=== PATIENT | female | born 1935 | race Caucasian/White ===

== ENCOUNTER 2017-10-25 03:28 | Inpatient (IN) | payer MEDICARE ==
[~2017-10-25] VITALS: Ht 167.6 cm; Wt 65.0 kg
[2017-10-25 03:31] VITALS: BP 159/81; PULSE 97; RESP 20; TEMP 97.7; O2SAT 97
[2017-10-25] MEDS ORDERED: METO25TA3 PO (03:48)
[2017-10-25] MEDS ORDERED: AMLO2.5T PO (03:48)
[2017-10-25] MEDS ORDERED: HYDR500C PO (03:48)
[2017-10-25] MEDS ORDERED: SODIUM CHLOR 0.9% 1000 ML INJ 1,000 ML IV SCH (04:01)
--- NOTE | 2017-10-25 04:01 | PD ---
HPI Chief Complaint: Abdominal Pain Time Seen by Provider: 04:00 Travel History International Travel<30 days: No Contact w/Intl Traveler<30days: No Traveled to known affect area: No History of Present Illness HPI Patient is an 82-year-old female very fit and exercise conscious on vacation from [place] been here for the last 2 weeks visiting her daughter kaylie she woke up in the middle the night severe pressure in her abdomen asked her daughter for any laxative but they had not in the house. Pain got so significantly worse they had to come to the emergency room. Patient has a history of having thrombocytosis for which she takes hydroxyurea and she takes a meloxicam for muscle relaxant and she takes a pill for pressure was only medication she takes and she has no other significant past medical history daughter says she is a fitness buff she looks thin and younger than her stated age. In the ER she has significant distended bloating belly and has severe tenderness to my percussion and palpation of her abdomen, She has not seen another MD for this illness PFSH Past Medical History Cancer: Yes (skin) Hypertension: Yes Immunizations Current: Yes Tetanus Vaccination: Unknown Influenza Vaccination: Yes Social History Alcohol Use: No Tobacco Use: No Substance Use: No Allergies-Medications (Allergen,Severity, Reaction): Coded Allergies: No Known Allergies (Unverified , 10/25/17) Reported Meds & Prescriptions Reported Meds & Active Scripts Active Reported Metoprolol Tartrate 25 Mg Tab 25 Mg PO DAILY Amlodipine (Amlodipine Besylate) 2.5 Mg Tab 2.5 Mg PO DAILY Hydrea (Hydroxyurea) 500 Mg Cap 500 Mg PO DAILY Review of Systems Except as stated in HPI: all other systems reviewed are Neg Gastrointestinal: Positive: Abdominal Pain, Constipation Physical Exam Narrative GENERAL: Patient is awake alert appears uncomfortable SKIN: Warm and dry. HEAD: Atraumatic. Normocephalic. EYES: Pupils equal and round. No scleral icterus. No injection or drainage. ENT: No nasal bleeding or discharge. Mucous membranes pink and moist. NECK: Trachea midline. No JVD. CARDIOVASCULAR: Regular rate and rhythm. RESPIRATORY: No accessory muscle use. Clear to auscultation. Breath sounds equal bilaterally. GASTROINTESTINAL: Abdomen is very tender to percussion in all quadrants also she is positive for rebound tenderness when I let go. concerning for ischemic colitis or possible Perforated viscous soft, moderately distended . MUSCULOSKELETAL: Extremities without clubbing, cyanosis, or edema. No obvious deformities. NEUROLOGICAL: Awake and alert. No obvious cranial nerve deficits. Motor grossly within normal limits. Five out of 5 muscle strength in the arms and legs. Normal speech. PSYCHIATRIC: Appropriate mood and affect; insight and judgment normal. Data Data Last Documented VS Orders Orders Complete Blood Count With Diff (10/25/17 04:01) Comprehensive Metabolic Panel (10/25/17 04:01) Lipase (10/25/17 04:01) Lactic Acid (10/25/17 04:01) Urinalysis - C+S If Indicated (10/25/17 04:01) Abdomen, Flat & Upright (10/25/17 ) Ct Abd/Pel W Iv Contrast(Rout) (10/25/17 04:01) Iv Access Insert/Monitor (10/25/17 04:01) Ecg Monitoring (10/25/17 04:01) Oximetry (10/25/17 04:01) Sodium Chlor 0.9% 1000 Ml Inj (Ns 1000 M (10/25/17 04:01) Sodium Chloride 0.9% Flush (Ns Flush) (10/25/17 04:15) Prothrombin Time / Inr (Pt) (10/25/17 04:03) Oral Contrast - Adult (10/25/17 04:05) Troponin I (10/25/17 04:10) Electrocardiogram (10/25/17 ) Morphine Inj (Morphine Inj) (10/25/17 04:30) Diatrizoate Liq ( Gastroview Liq) (10/25/17 04:56) Piperacil-Tazo 3.375 Gm Premix (Zosyn 3. (10/25/17 06:15) Sodium Chlor 0.9% 1000 Ml Inj (Ns 1000 M (10/25/17 06:15) NPO (10/25/17 06:04) Admit Order (Ed Use Only) (10/25/17 06:05) Labs Laboratory Tests Test 10/25/17 04:00 White Blood Count 5.4 TH/MM3 Red Blood Count 3.69 MIL/MM3 Hemoglobin 13.6 GM/DL Hematocrit 39.6 % Mean Corpuscular Volume 107.2 FL Mean Corpuscular Hemoglobin 36.8 PG Mean Corpuscular Hemoglobin Concent 34.3 % Red Cell Distribution Width 13.1 % Platelet Count 425 TH/MM3 Mean Platelet Volume 7.8 FL Neutrophils (%) (Auto) 48.1 % Lymphocytes (%) (Auto) 39.1 % Monocytes (%) (Auto) 8.4 % Eosinophils (%) (Auto) 3.9 % Basophils (%) (Auto) 0.5 % Neutrophils # (Auto) 2.6 TH/MM3 Lymphocytes # (Auto) 2.1 TH/MM3 Monocytes # (Auto) 0.5 TH/MM3 Eosinophils # (Auto) 0.2 TH/MM3 Basophils # (Auto) 0.0 TH/MM3 CBC Comment DIFF FINAL Differential Comment Prothrombin Time 9.4 SEC Prothromb Time International Ratio 0.9 RATIO Blood Urea Nitrogen 31 MG/DL Creatinine 1.19 MG/DL Random Glucose 100 MG/DL Total Protein 7.4 GM/DL Albumin 3.7 GM/DL Calcium Level 9.3 MG/DL Alkaline Phosphatase 54 U/L Aspartate Amino Transf (AST/SGOT) 19 U/L Alanine Aminotransferase (ALT/SGPT) 21 U/L Total Bilirubin 0.3 MG/DL Sodium Level 139 MEQ/L Potassium Level 4.0 MEQ/L Chloride Level 103 MEQ/L Carbon Dioxide Level 30.5 MEQ/L Anion Gap 6 MEQ/L Estimat Glomerular Filtration Rate 43 ML/MIN Lactic Acid Level 1.1 mmol/L Troponin I 0.02 NG/ML Lipase 293 U/L [facility] Medical Decision Making Medical Screen Exam Complete: Yes Emergency Medical Condition: Yes Medical Record Reviewed: Yes Differential Diagnosis Fecal impaction ileus versus small bowel obstruction versus ischemic colitis versus pertinent viscous , pneumatosis intestinalis other panccreatitis Narrative Course X-ray returns with free air underneath the diaphragm I immediately paged the surgeon to let him know that there is most likely a perforated viscus. Patient was the CAT scan I speak to Dr. Hilliard Surgeon, he agrees to take her to her service and will take her to the OR most likely .. CAT scan in progress I order NPo and Zosyn 3.375 g is given Critical Care Narrative 30 minutes critical care time to diagnosis treat medically and get to appropriate definitive surgical care to avoid peritonitis --> sepsis that could lead to cardiac arrest Diagnosis Primary Impression: Perforated bowel Additional Impression: Duodenal ulcer Admitting Information Admitting Physician Requests: Admit Scripts Hydrocodone/Acetaminophen (Hydrocodone-Acetamin 5-325 mg) 5 Mg-325 Mg Tablet 1 TAB PO Q4H Y for pain, #20 TAB Prov: Matilde Araujo 10/31/17 Clarithromycin (Clarithromycin) 500 Mg Tab 500 MG PO Q12HR for infection for 14 Days, TAB Prov: Matilde Araujo 10/31/17 Pantoprazole (Pantoprazole) 40 Mg Tab 40 MG PO DAILY for Dyspepsia for 30 Days, #30 TAB 2 Refills Prov: Matilde Araujo 10/31/17 Davian Culver MD Oct 25, 2017 04:01
[2017-10-25] MEDS ORDERED: SODIUM CHLORIDE 0.9% FLUSH 10 ML FLUSH IV FLUSH PRN ×2 (04:15→12:00)
[2017-10-25 04:28] LABS: AUTOMATED NEUTROPHIL # 2.6 TH/MM3 (1.8-7.7); BASOPHIL % 0.5 % (0.0-2.0); EOSINOPHIL # 0.2 TH/MM3 (0-0.4); EOSINOPHIL % 3.9 % (0.0-4.0); HEMATOCRIT 39.6 % (35.0-46.0); HEMOGLOBIN 13.6 GM/DL (11.6-15.3); LYMPH % 39.1 % (9.0-44.0); LYMPHOCYTE # 2.1 TH/MM3 (1.0-4.8); MEAN CELL VOLUME 107.2 FL (80.0-100.0); MEAN CORPUSCULAR HEMOGLOBIN 36.8 PG (27.0-34.0); MEAN CORPUSCULAR HGB CONC 34.3 % (32.0-36.0); MEAN PLATELET VOLUME 7.8 FL (7.0-11.0); MONO % 8.4 % (0.0-8.0); MONOCYTE # 0.5 TH/MM3 (0-0.9); NEUT % 48.1 % (16.0-70.0); PLATELET COUNT 425 TH/MM3 (150-450); RED BLOOD COUNT 3.69 MIL/MM3 (4.00-5.30); RED CELL DISTRIBUTION WIDTH 13.1 % (11.6-17.2); WHITE BLOOD COUNT 5.4 TH/MM3 (4.0-11.0)
[2017-10-25] MEDS ORDERED: MORPHINE SULFATE 2 MG/ML INJ IV PUSH ONE (04:30)
[2017-10-25 04:46] LABS: ALBUMIN 3.7 GM/DL (3.4-5.0); AST (GOT) 19 U/L (15-37); BICARBONATE 30.5 MEQ/L (21.0-32.0); BLOOD UREA NITROGEN 31 MG/DL (7-18); CALCIUM 9.3 MG/DL (8.5-10.1); CHLORIDE 103 MEQ/L (98-107); CREATININE 1.19 MG/DL (0.50-1.00); GLOMERULAR FILTRATION RATE 43 ML/MIN (>89); GLUCOSE,RANDOM 100 MG/DL (74-106); LIPASE 293 U/L (73-393); SODIUM (NA) 139 MEQ/L (136-145)
[2017-10-25 04:47] LABS: ALT (GPT) 21 U/L (10-53)
[2017-10-25 04:49] LABS: ALKALINE PHOSPHATASE 54 U/L (45-117); TOTAL BILIRUBIN ADULT 0.3 MG/DL (0.2-1.0); TOTAL PROTEIN 7.4 GM/DL (6.4-8.2)
[2017-10-25] MEDS ORDERED: DIATRIZOATE MEGLUM/DIATRIZOATE SOD 9 ML CUP ONE (04:56)
[2017-10-25 05:00] VITALS: BP 152/78; PULSE 86; RESP 20; O2SAT 97
[2017-10-25 05:17] LABS: INTERNATIONAL NORMALIZED RATIO 0.9 RATIO; PROTHROMBIN TIME - PATIENT 9.4 SEC (9.8-11.6)
--- NOTE | 2017-10-25 05:25 | RADRPT ---
EXAM DATE/TIME: 10/25/2017 04:42 [facility] COMPARISON: No previous studies available for comparison. INDICATIONS : Upper abdominal pain beginning tonight. MEDICAL HISTORY : Hypertension. Skin Cancer SURGICAL HISTORY : None. ENCOUNTER: Initial ACUITY: 1 day PAIN SCORE: 9/10 LOCATION: Bilateral Abdomen FINDINGS: Supine and upright views of the abdomen were performed. The abdominal bowel gas pattern is nonspecif ic. There is a moderate amount of stool throughout the entire colon. However, on the upright study th ere is free air under the right hemidiaphragm.. The lung bases are grossly clear. There are degenerat homer changes involving the lumbar spine with curvature of the lumbar spine to the right. CONCLUSION: 1. Free air underneath the right hemidiaphragm. This suggests a perforated viscus. Patient is schedul ed for CT scan of the abdomen and pelvis. Lawson Jacobs MD on October 25, 2017 at 5:21 Board Certified Radiologist. This report was verified electronically.
[2017-10-25] MEDS ORDERED: IOHEXOL 350 MG/ML 10 ML VIAL (for RAD DIAG) IVCONTRAST ONE (06:00)
[2017-10-25] MEDS ORDERED: PIPERACIL-TAZO 3.375 GM PREMIX 50 ML IV ONE (06:15)
[2017-10-25] MEDS ORDERED: SODIUM CHLOR 0.9% 1000 ML INJ 1,000 ML IV ONE (06:15)
--- NOTE | 2017-10-25 06:25 | RADRPT ---
EXAM DATE/TIME: 10/25/2017 06:08 [facility] COMPARISON: ABDOMEN FLAT & UPRIGHT, October 25, 2017, 4:42. INDICATIONS : Abdominal pain and distention. IV CONTRAST: 85 cc Omnipaque 350 (iohexol) IV ORAL CONTRAST: Prescribed oral contrast ingested. RADIATION DOSE: 6.38 CTDIvol (mGy) MEDICAL HISTORY : Hypertension. SURGICAL HISTORY : None. ENCOUNTER: Initial ACUITY: 2 days PAIN SCALE: 10/10 LOCATION: Abdomen. TECHNIQUE: Volumetric scanning of the abdomen and pelvis was performed. Using automated exposure control and ad justment of the mA and/or kV according to patient size, radiation dose was kept as low as reasonably achievable to obtain optimal diagnostic quality images. DICOM format image data is available electro nically for review and comparison. FINDINGS: LOWER LUNGS: The visualized lower lungs are clear. There is free air under the right hemidiaphragm. LIVER: Homogeneous density without lesion. There is no dilation of the biliary tree. No calcified gallston es. SPLEEN: Normal size without lesion. PANCREAS: Within normal limits. KIDNEYS: Normal in size and shape. There is no mass, stone or hydronephrosis. ADRENAL GLANDS: Within normal limits. VASCULAR: There is no aortic aneurysm. BOWEL/MESENTERY: There is free air in the upper abdomen. There is thickening involving the distal wall of the stomach and duodenal bulb. Most of the free air appears to be in this location. This suggests a possible melvin veda or duodenal ulcer perforation. Small bowel is within normal limits. Oral contrast was given. No d efinite extravasation of oral contrast is seen. There is a moderate amount of stool throughout the co edson. Appendix is unremarkable. There is a small amount of free fluid deep in the pelvis. There is no free air deep in the pelvis. ABDOMINAL WALL: Within normal limits. RETROPERITONEUM: There is no lymphadenopathy. BLADDER: Urinary bladder is decompressed. REPRODUCTIVE: Within normal limits. INGUINAL: There is no lymphadenopathy or hernia. MUSCULOSKELETAL: There are degenerative changes involving the lumbar spine. There is curvature lumbar spine to the rig ht. CONCLUSION: 1. There is free air in the upper abdomen characteristics of a perforated viscus. There is abnormal t hickening involving the stomach and duodenal bulb. Most of the free air appears to be in this locatio n suggestive of a perforated gastric or duodenal ulcer. 2. Small amount of free fluid deep in the pelvis. Lawson Jacobs MD on October 25, 2017 at 6:16 Board Certified Radiologist. This report was verified electronically.
[2017-10-25 06:30] VITALS: BP 146/68; PULSE 96; RESP 20; O2SAT 97
[2017-10-25 07:12] VITALS: BP 138/63; PULSE 87; RESP 20; TEMP 98.1; O2SAT 96
[2017-10-25] MEDS ORDERED: BUPIVACAINE/EPINEPHRINE 0.25% 50 ML VIAL ONE (08:32)
[2017-10-25] MEDS ORDERED: BUPIVACAINE/EPINEPHRINE 0.25% PF 10 ML VIAL ONE (08:33)
[2017-10-25] MEDS ORDERED: FLUCONAZOLE 400 MG PREMIX BAG 200 ML IV ONE (09:00)
--- NOTE | 2017-10-25 09:10 | MH ---
cc: MORIS PARSON DATE OF ADMISSION 10/25/2017 CHIEF COMPLAINT Intra-abdominal free air. HISTORY OF PRESENT ILLNESS The patient is an 82-year-old female visiting the [facility] from [place]. She developed a sudden onset of severe epigastric abdominal pain that felt like indigestion at about 2:45 a.m. The patient presented to [facility] and had evaluation including x-ray which did show a small amount of free air under the diaphragm. A CT scan was performed and it again showed a small amount of free air in the upper abdomen as well as some thickening of the stomach concerning for possible perforation. The patient was stable hemodynamically. She had significant tenderness on exam. General surgery was consulted. The patient currently has no nausea, vomiting, diarrhea, constipation, fevers, chills or night sweats. She has never had this pain prior. Pain has been constant in epigastric abdomen without radiation. She feels better since receiving pain medicine. REVIEW OF SYSTEMS A 12-point review of systems is performed with the patient and is negative except for pertinent positives mentioned above in the history of present illness. PAST MEDICAL HISTORY Thrombocytosis. PAST SURGICAL HISTORY Orthopedic surgery. ALLERGIES No known drug allergies. MEDICATIONS Hydroxyurea. SOCIAL HISTORY The patient occasionally uses alcohol, small amounts of wine socially. She denies cigarette or tobacco use. Denies illicit drug use. She lives in [place], down here with her daughter vacationing. FAMILY HISTORY Noncontributory. PHYSICAL EXAMINATION VITAL SIGNS: Temperature 98.1 degrees, heart rate 87, blood pressure 138/63. GENERAL: The patient is a well-developed, well-nourished female in no acute distress. HEENT: Head is normocephalic, atraumatic. Pupils are round and reactive to light. Sclera anicteric. Oral cavity is clear. Airway is patent. NECK: Supple. No JVD. LUNGS: Breath sounds present bilaterally. Non-labored breathing pattern. HEART: Regular rate and rhythm. ABDOMEN: Soft. Mildly distended. Tender to palpation throughout without obvious peritonitis. Tenderness more in the epigastric area. Hypoactive bowel sounds. BACK: No CVA tenderness. EXTREMITIES: No clubbing, cyanosis or edema. NEUROLOGIC: The patient is alert and oriented x3. Nonfocal peripheral exam. Cranial nerves II through XII grossly intact. Mood, judgment and insight are within normal limits. LABORATORY VALUES White blood cell count 5.4, hemoglobin 13.6. INR is 0.9. ASSESSMENT AND PLAN The patient is an 82-year-old female with a likely perforated gastric or duodenal ulcer based on the CT scan. The patient is hemodynamically stable without peritonitis. There is also of note a significant amount of free fluid in the upper abdomen. The patient has no history of NSAID abuse or known H. pylori infection. Due to the free air in the abdomen and also free fluid, I do feel the patient is not a good candidate for nonoperative management of free air. I feel the patient would most benefit from early operation. I do recommend diagnostic laparoscopy, possible exploratory laparotomy for identification of the problem including a high likelihood of a perforated gastric or duodenal ulcer. I discussed with the patient and her daughter the risks, benefits, alternatives and expected outcomes. All their questions were answered to their satisfaction. Will keep the patient n.p.o., give antibiotics, IV fluids and will schedule the patient urgently for the operating room based on operating room availability. Moris Parson MD AWG/SHANTANU /8:09 AM /8:46 AM
[2017-10-25 09:12] LABS: BILIRUBIN, URINE NEG (NEG); BLOOD, URINE NEG (NEG); GLUCOSE,URINE NEG (NEG); KETONE, URINE NEG (NEG); NITRITE,URINE NEG (NEG); PH, URINE 6.5 (5.0-8.5); SQUAMOUS EPITHELIAL CELL URINE <1 /hpf (0-5); URINE COLOR LIGHT-YELLOW (YELLW/STRAW); URINE LEUKOCYTE ESTERASE NEG (NEG)
[2017-10-25] MEDS ORDERED: GENTAMICIN SULFATE 80 MG/2 ML VIAL ONE (09:32)
[2017-10-25] MEDS ORDERED: BUPIVACAINE LIPOSOME PF 1.3% 20 ML VIAL ONE (10:56)
[2017-10-25] MEDS ORDERED: DO NOT ADM ANY ANTICOAGULANT DRUGS PRN (11:19)
[2017-10-25] MEDS ORDERED: NALOXONE HCL 0.4 MG/ML AMP IV PUSH PRN ×2 (11:30→12:15)
[2017-10-25] MEDS ORDERED: *morphine SULFATE 4 MG/ML PERIprocedure ONLY ONE ×2 (11:44→11:47)
[2017-10-25] MEDS ORDERED: ONDANSETRON HCL 4 MG/2 ML VIAL IV ONE (12:00)
[2017-10-25] MEDS ORDERED: ROCURONIUM INJ 50 MG/5 ML SYRINGE IV PUSH ONE (12:00)
[2017-10-25] MEDS ORDERED: LIDOCAINE HCL 1% PF 5 ML SYRINGE OTHER ONE (12:00)
[2017-10-25] MEDS ORDERED: PROPOFOL 200 MG/20 ML AMP IV ONE (12:00)
[2017-10-25] MEDS ORDERED: GLYCOPYRROLATE 1 MG/5 ML SYRINGE IV PUSH ONE (12:00)
[2017-10-25] MEDS: PANTOPRAZOLE SODIUM 40 MG VIAL IV PUSH SCH ×2 (12:00→20:44)
[2017-10-25] MEDS ORDERED: NEOSTIGMINE 5 MG/5 ML SYRINGE IV PUSH ONE (12:00)
[2017-10-25] MEDS: SODIUM CHLORIDE 0.9% FLUSH 10 ML FLUSH IV FLUSH SCH ×2 (12:00→20:43)
[2017-10-25] MEDS ORDERED: LACTATED RINGER'S 1000 ML INJ 3,000 ML IV ONE (12:00)
[2017-10-25] MEDS ORDERED: PHENYLEPH/NS 1000 MCG/10 ML SYR IV ONE (12:00)
[2017-10-25] MEDS ORDERED: DEXAMETHASONE SOD PHOS 4 MG/ML VIAL IV ONE (12:00)
[2017-10-25] MEDS: D5-NS + KCL 20 MEQ INJ 1,000 ML IV SCH ×2 (12:15→20:44)
[2017-10-25] MEDS ORDERED: ONDANSETRON HCL 4 MG/2 ML VIAL IV PUSH PRN (12:15)
[2017-10-25] MEDS ORDERED: BENZOCAINE 20% ORAL SPR 60 ML CAN MT PRN (12:15)
[2017-10-25] MEDS ORDERED: diphenhydrAMINE HCL 50 MG/ML VIAL IV PUSH PRN (12:15)
[2017-10-25] MEDS: ACETAMINOPHEN 1000 MG/100 ML 100 ML IV SCH ×2 (12:30→17:40)
[2017-10-25] MEDS ORDERED: Post-op Orders (for Pharmacy) XX ONE (13:00)
[2017-10-25] MEDS: PIPERACIL-TAZO 3.375 GM PREMIX 50 ML IV SCH ×2 (13:59→18:52)
--- NOTE | 2017-10-25 14:20 | EKG ---
Date Performed: 10/25/2017 Time Performed: 04:32:52 PTAGE: 82 years EKG: Sinus rhythm MINIMAL ST DEPRESSION BORDERLINE ECG NO PREVIOUS TRACING DOCTOR: Pradeep Sandy Interpretating Date/Time 10/25/2017 14:19:02
[2017-10-25] MEDS: PCA - TOTAL MG MORPHINE DELIVERED PER SHIFT SCH ×2 (15:30→22:13)
[2017-10-25 16:00] VITALS: BP 101/51; PULSE 68; RESP 17; TEMP 96.8; O2SAT 98
[2017-10-25 20:00] VITALS: BP 103/52; PULSE 79; RESP 19; TEMP 97.6; O2SAT 94
[2017-10-26] VITALS (7 sets, daily range): BP systolic 103–147; BP diastolic 53–70; PULSE 77–97; RESP 17–20; TEMP 95.9–97.6; O2SAT 91–100
[2017-10-26] MEDS: PIPERACILLIN/TAZ 3.375 GM VIAL 3.375 GM in SODIUM CHLORIDE 0.9% INJ 100 ML IV SCH ×4 (00:48→17:53)
[2017-10-26] MEDS: ACETAMINOPHEN 1000 MG/100 ML 100 ML IV SCH ×5 (00:49→23:39)
[2017-10-26] MEDS: PCA - TOTAL MG MORPHINE DELIVERED PER SHIFT SCH ×3 (05:19→20:23)
[2017-10-26 06:57] LABS: AUTOMATED NEUTROPHIL # 10.1 TH/MM3 (1.8-7.7); HEMATOCRIT 28.4 % (35.0-46.0); HEMOGLOBIN 9.9 GM/DL (11.6-15.3); LYMPH % 5.9 % (9.0-44.0); LYMPHOCYTE # 0.7 TH/MM3 (1.0-4.8); MEAN CELL VOLUME 108.8 FL (80.0-100.0); MEAN CORPUSCULAR HEMOGLOBIN 37.9 PG (27.0-34.0); MEAN CORPUSCULAR HGB CONC 34.8 % (32.0-36.0); MEAN PLATELET VOLUME 8.4 FL (7.0-11.0); MONO % 3.9 % (0.0-8.0); MONOCYTE # 0.4 TH/MM3 (0-0.9); NEUT % 90.2 % (16.0-70.0); PLATELET COUNT 319 TH/MM3 (150-450); RED BLOOD COUNT 2.61 MIL/MM3 (4.00-5.30); RED CELL DISTRIBUTION WIDTH 13.3 % (11.6-17.2); WHITE BLOOD COUNT 11.2 TH/MM3 (4.0-11.0)
[2017-10-26 07:40] LABS: BICARBONATE 25.9 MEQ/L (21.0-32.0); CALCIUM 6.9 MG/DL (8.5-10.1); CREATININE 1.12 MG/DL (0.50-1.00)
[2017-10-26] MEDS: PANTOPRAZOLE SODIUM 40 MG VIAL IV PUSH SCH ×2 (08:34→20:23)
[2017-10-26] MEDS: FLUCONAZOLE 200 MG PREMIX BAG 100 ML IV SCH (08:34)
[2017-10-26] MEDS: SODIUM CHLORIDE 0.9% FLUSH 10 ML FLUSH IV FLUSH SCH ×2 (08:35→20:22)
[2017-10-26] MEDS: ENOXAPARIN SODIUM 40 MG/0.4 ML SYRINGE SQ SCH (08:35)
[2017-10-26] MEDS: D5-NS + KCL 20 MEQ INJ 1,000 ML IV SCH ×2 (12:18→20:22)
--- NOTE | 2017-10-26 12:37 | MP ---
cc: MORIS PARSON DATE OF OPERATION 10/25/2017 PREOPERATIVE DIAGNOSIS Free air. POSTOPERATIVE DIAGNOSIS Perforated first portion anterior duodenal ulcer. PROCEDURE 1. Diagnostic laparoscopy with laparoscopic repair of duodenal ulcer converted to open exploratory laparotomy and modified Jung's patch repair of perforated duodenal ulcer. 2. Duodenal ulcer biopsy, intraoperative consultation, frozen section. ATTENDING SURGEON MD Favian ASSISTANCE Staff ANESTHESIA General and local anesthetic with Exparel. ESTIMATED BLOOD LOSS 25 cc COMPLICATIONS None. FINDINGS An anterior 5-mm acutely perforated associated with a large, thick circumferential ulcer, first portion duodenal ulcer. Laparoscopic repair unfortunately showed continued leak due to poor approximation due to very thickened, inflamed tissue surrounding the perforation requiring conversion to open. INDICATIONS FOR PROCEDURE The patient is an 82-year-old [place] who developed sudden onset of epigastric pain early this morning. She presented to the emergency department, was found to have free air on CT scan and thickening of the gastric antrum concerning for possible perforated duodenal ulcer. After discussion with the patient about the diagnosis as well as the risks, benefits and alternatives of treatment, the patient agreed to undergo repair for ulcer and exploratory surgery. PROCEDURE The patient was taken to the operating room, placed in a supine position, placed under general endotracheal anesthesia. The patient's abdomen was prepped and draped in a sterile fashion. Time-out was performed. The abdomen was entered through Nevaeh type technique above the umbilicus with a curvilinear incision. We directly opened the fascia at the midline and placed a 10-mm balloon trocar into the abdomen under direct visualization. We insufflated the abdomen, surveyed the abdomen with a 5-mm camera. There was no evidence of any complication from our entry. We did note a large amount of bilious, purulent type material in the right upper quadrant and around the stomach and duodenum. We did place three additional ports; these were 5-mm ports, one in the sub-xyphoid position, one in the right upper quadrant, one in the left upper quadrant, all under direct visualization with the laparoscope. With these ports we were able to peel down some omentum and clearly identified a 5-mm anterior perforation at the first portion of the duodenum just past the pylorus. We did send some cultures from this area. At this point in time this appeared to be amendable to a laparoscopic closure with a laparoscopic modified Jung's patch. We were able to use the needle drivers and [place] dissector to place four interrupted 3-0 Vicryl sutures. Although this appeared we had completely closed the ulcer, we did leak test this by passing fluid from the stomach into the duodenum where this was a very obvious continued leak at this area. I felt that this was a poor result from a laparoscopic repair and would require an open repair in the patient's best interest. We then converted to an open midline incision from below the xiphoid to the umbilicus. We used Bovie electrocautery to dissect the subcutaneous tissue and opened the midline fascia. We placed an Lorenzo extra-large wound protector in place. We then were able to take down our previous Vicryl stitches. We biopsied the ulcer in multiple areas and sent this for permanent as well as frozen section which returned benign. We then closed the ulcer in a Heineke-Mekawitz type closure of the duodenum with several interrupted 3-0 silk sutures. Our repair was intact and technically viable; no evidence of leak. We then placed omentum over the repair and tacked this in place with three interrupted Lembert type silk sutures. At this point in time we then irrigated out the abdomen with approximately 6 liters of sterile saline until all succinate was clear and there was actually minimal contamination and minimal peritonitis. The patient had presented promptly after her perforation. NG tube was in good position and we also placed a 19-Gambian round Pawan drain through one of the port incisions into the right upper quadrant and near our repair. This was sutured in place with nylon suture. We then turned our attention towards closure. We ensured all bowel was in anatomic position and placed some omentum over the midline. We closed the midline fascia with single #1 looped PDS suture. We closed the skin with janelle and a SOO dressing was applied. The drain was placed to bulb suction. The patient was discontinued from anesthesia, taken to PACU in stable condition. The patient tolerated the procedure well. No apparent complications. All counts were correct and I was present and scrubbed for the entire procedure. MD GOLDIE GermainG/MILLY 11:37 AM /11:59 AM MISAEL
--- NOTE | 2017-10-26 15:53 | HHI.PR ---
Subjective Subjective Notes Pain improved today Objective Vitals/I&O Vital Signs Date Time Temp Pulse Resp B/P (MAP) Pulse Ox O2 Delivery O2 Flow Rate FiO2 10/26/17 12:24 17 10/26/17 12:00 97.4 77 111/58 (75) 100 10/25/17 14:00 Nasal Cannula 3 Labs Laboratory Tests Test 10/26/17 04:03 10/26/17 04:09 Blood Urea Nitrogen 23 Creatinine 1.12 Random Glucose 129 Total Protein 5.0 Calcium Level 6.9 Sodium Level 143 Potassium Level 4.5 Chloride Level 112 Carbon Dioxide Level 25.9 Anion Gap 5 Estimat Glomerular Filtration Rate 47 Protein Corrected Calcium 8.0 White Blood Count 11.2 Red Blood Count 2.61 Hemoglobin 9.9 Hematocrit 28.4 Mean Corpuscular Volume 108.8 Mean Corpuscular Hemoglobin 37.9 Mean Corpuscular Hemoglobin Concent 34.8 Red Cell Distribution Width 13.3 Platelet Count 319 Mean Platelet Volume 8.4 Neutrophils (%) (Auto) 90.2 Lymphocytes (%) (Auto) 5.9 Monocytes (%) (Auto) 3.9 Eosinophils (%) (Auto) 0.0 Basophils (%) (Auto) 0.0 Neutrophils # (Auto) 10.1 Lymphocytes # (Auto) 0.7 Monocytes # (Auto) 0.4 Eosinophils # (Auto) 0.0 Basophils # (Auto) 0.0 CBC Comment DIFF FINAL Differential Comment Date/Time Source Procedure Growth Status 10/25/17 10:20 Fluid Other Gram Stain - Final Resulted 10/25/17 10:20 Fluid Other Body Fluid Culture - Preliminary Resulted Lungs: Clear Abdomen: Post-op tenderness Narrative Exam SOO dressing dry and intact Drain output serosanguinous; bulb 3/4 full A/P Assessment and Plan POD #1 Jung Patch for perforated duodenal ulcer Continue NG D/C ospina Start anticoagulation Mobilize pt. Bryan Barrios MD Oct 26, 2017 15:53
[2017-10-27] VITALS (8 sets, daily range): BP systolic 137–182; BP diastolic 67–96; PULSE 83–110; RESP 17–21; TEMP 96.5–97.3; O2SAT 92–95
[2017-10-27] MEDS: PIPERACILLIN/TAZ 3.375 GM VIAL 3.375 GM in SODIUM CHLORIDE 0.9% INJ 100 ML IV SCH ×4 (01:49→18:16)
[2017-10-27] MEDS: D5-NS + KCL 20 MEQ INJ 1,000 ML IV SCH ×3 (02:39→20:15)
[2017-10-27] MEDS: MORPHINE SULFATE 30 MG/30 ML PCA IV SCH (02:40)
[2017-10-27] MEDS: ACETAMINOPHEN 1000 MG/100 ML 100 ML IV SCH (03:55)
[2017-10-27] MEDS: PCA - TOTAL MG MORPHINE DELIVERED PER SHIFT SCH ×3 (03:59→20:16)
[2017-10-27] MEDS: FLUCONAZOLE 200 MG PREMIX BAG 100 ML IV SCH (08:01)
[2017-10-27] MEDS: ENOXAPARIN SODIUM 40 MG/0.4 ML SYRINGE SQ SCH (08:01)
[2017-10-27] MEDS: PANTOPRAZOLE SODIUM 40 MG VIAL IV PUSH SCH ×2 (08:01→20:15)
[2017-10-27] MEDS: SODIUM CHLORIDE 0.9% FLUSH 10 ML FLUSH IV FLUSH SCH ×2 (08:01→20:16)
--- NOTE | 2017-10-27 12:28 | HHI.PR ---
Subjective Subjective Notes Reports sore throat Minimal abdominal pain Objective Vitals/I&O Vital Signs Date Time Temp Pulse Resp B/P (MAP) Pulse Ox O2 Delivery O2 Flow Rate FiO2 10/27/17 10:21 94 10/27/17 09:17 92 18 154/83 (106) 10/27/17 08:00 97.2 10/25/17 14:00 Nasal Cannula 3 Labs Date/Time Source Procedure Growth Status 10/25/17 10:20 Fluid Other Gram Stain - Final Complete 10/25/17 10:20 Fluid Other Body Fluid Culture - Final Complete Lungs: Clear Abdomen: Non-distended, Post-op tenderness Narrative Exam SOO dressing with minimal drainage superior portion and intact Drain output serosanguinous; 140 ml/24hr A/P Assessment and Plan Assessment: POD #2 Jung Patch for perforated duodenal ulcer, doing well. Plan: Continue NG one more day; possibly study prior to removal? Cepacol lozenges for throat Bryan Barrios MD Oct 27, 2017 12:28
[2017-10-27] MEDS ORDERED: BENZOCAINE-MENTHOL (SUGAR FREE) 15 MG-3.6 MG LOZENGE BUCCAL PRN (12:30)
[2017-10-28] VITALS: BP 147/78; PULSE 82; RESP 20; TEMP 96.4; O2SAT 95
[2017-10-28] MEDS: PIPERACILLIN/TAZ 3.375 GM VIAL 3.375 GM in SODIUM CHLORIDE 0.9% INJ 100 ML IV SCH (01:06)
[2017-10-28 04:00] VITALS: BP 152/86; PULSE 85; RESP 20; TEMP 96.5; O2SAT 94
[2017-10-28] MEDS: PIPERACILLIN/TAZ 3.375 GM VIAL 3.375 GM in SODIUM CHLORIDE 0.9% INJ 50 ML IV SCH ×3 (05:37→18:02)
[2017-10-28] MEDS: D5-NS + KCL 20 MEQ INJ 1,000 ML IV SCH ×3 (05:37→21:42)
[2017-10-28] MEDS: PCA - TOTAL MG MORPHINE DELIVERED PER SHIFT SCH ×3 (05:39→21:43)
[2017-10-28 08:00] VITALS: BP 152/79; PULSE 86; RESP 18; TEMP 97.7; O2SAT 93
[2017-10-28] MEDS: FLUCONAZOLE 200 MG PREMIX BAG 100 ML IV SCH (09:24)
[2017-10-28] MEDS: SODIUM CHLORIDE 0.9% FLUSH 10 ML FLUSH IV FLUSH SCH ×2 (09:25→21:42)
[2017-10-28] MEDS: PANTOPRAZOLE SODIUM 40 MG VIAL IV PUSH SCH ×2 (09:25→21:43)
[2017-10-28] MEDS: ENOXAPARIN SODIUM 40 MG/0.4 ML SYRINGE SQ SCH (09:25)
[2017-10-28 12:00] VITALS: BP 146/79; PULSE 91; RESP 16; TEMP 98.2; O2SAT 93
--- NOTE | 2017-10-28 13:48 | HHI.PR ---
Subjective Subjective Notes Resting in bed No issues overnight Happy that NGT is going to come out today Objective Vitals/I&O Vital Signs Date Time Temp Pulse Resp B/P (MAP) Pulse Ox O2 Delivery O2 Flow Rate FiO2 10/28/17 12:00 98.2 91 16 146/79 (101) 93 10/27/17 21:45 21 10/25/17 14:00 Nasal Cannula 3 Labs Date/Time Source Procedure Growth Status 10/25/17 10:20 Fluid Other Gram Stain - Final Complete 10/25/17 10:20 Fluid Other Body Fluid Culture - Final Complete Cardiovascular: Regular Lungs: Clear Abdomen: Other (SOO in place with good seal; GERSON with SS drainage ) Extremities: No edema Narrative Exam NGT to LIWS A/P Assessment and Plan 82 year old female POD3 ex-lap; Jung Patch for perforated duodenal ulcer -DC NGT -Start sips of clears -Continue Zosyn/Diflucan -OOB and mobilize -Lovenox -IVF; will likely DC tomorrow Attending Note - Dr. Barrios I removed NG tube GERSON output still serosanguinous Start clears The exam, history, and the medical decision-making described in the above note were completed with the assistance of the mid-level provider. I reviewed and agree with the findings presented. I attest that I had a [id number] encounter with the patient on the same day, and personally performed and documented my assessment and findings in the medical record. Matilde Araujo Oct 28, 2017 13:48 Bryan Barrios MD Oct 29, 2017 19:56
[2017-10-28 16:00] VITALS: BP 147/83; PULSE 89; RESP 17; TEMP 96.4; O2SAT 96
[2017-10-28] MEDS: MORPHINE SULFATE 30 MG/30 ML PCA IV SCH (16:41)
[2017-10-28 20:00] VITALS: BP 147/78; PULSE 97; RESP 20; TEMP 97.3; O2SAT 94
[2017-10-29] VITALS: BP 164/84; PULSE 78; RESP 18; TEMP 96.8; O2SAT 94
[2017-10-29] MEDS: PIPERACILLIN/TAZ 3.375 GM VIAL 3.375 GM in SODIUM CHLORIDE 0.9% INJ 50 ML IV SCH ×4 (00:36→18:21)
[2017-10-29] MEDS: D5-NS + KCL 20 MEQ INJ 1,000 ML IV SCH (05:12)
[2017-10-29] MEDS: PCA - TOTAL MG MORPHINE DELIVERED PER SHIFT SCH ×3 (05:13→21:25)
[2017-10-29 08:00] VITALS: BP 168/90; PULSE 84; RESP 20; TEMP 97.9; O2SAT 95
[2017-10-29] MEDS: ENOXAPARIN SODIUM 40 MG/0.4 ML SYRINGE SQ SCH (08:30)
[2017-10-29] MEDS: FLUCONAZOLE 200 MG PREMIX BAG 100 ML IV SCH (08:31)
[2017-10-29] MEDS: SODIUM CHLORIDE 0.9% FLUSH 10 ML FLUSH IV FLUSH SCH ×2 (08:31→21:23)
[2017-10-29] MEDS: PANTOPRAZOLE SODIUM 40 MG VIAL IV PUSH SCH ×2 (08:31→21:25)
--- NOTE | 2017-10-29 11:28 | HHI.PR ---
Subjective Subjective Notes Doing well still a little weak Tolerated clear liquids Objective Vitals/I&O Vital Signs Date Time Temp Pulse Resp B/P (MAP) Pulse Ox O2 Delivery O2 Flow Rate FiO2 10/29/17 08:00 97.9 84 20 168/90 (116) 95 10/27/17 21:45 21 10/25/17 14:00 Nasal Cannula 3 Labs Date/Time Source Procedure Growth Status 10/25/17 10:20 Fluid Other Gram Stain - Final Complete 10/25/17 10:20 Fluid Other Body Fluid Culture - Final Complete Cardiovascular: Regular Lungs: Clear Abdomen: Other (SOO in place; GERSON with SS drainage ) Extremities: No edema A/P Assessment and Plan 82 year old female POD4 ex-lap; Jung Patch for perforated duodenal ulcer -Advance to full liquids -Continue Zosyn/Diflucan ---await sensitivity to transition to PO antibiotics -OOB and mobilize -Lovenox -DC IVF Attending Statement The exam, history, and the medical decision-making described in the above note were completed with the assistance of the mid-level provider. I reviewed and agree with the findings presented. I attest that I had a [id number] encounter with the patient on the same day, and personally performed and documented my assessment and findings in the medical record. s/o ExLap and grams patch, stable abdominal exam postop tenderness, no peritonitis or rebound tenderness await bowel function, continue liquids Mtailde Araujo Oct 29, 2017 11:28 Carlos Ballesteros MD Oct 30, 2017 09:43
[2017-10-29 12:00] VITALS: BP 161/84; PULSE 77; RESP 20; TEMP 96.9; O2SAT 96
[2017-10-29 16:00] VITALS: BP 185/91; PULSE 84; RESP 20; TEMP 97.9; O2SAT 96
[2017-10-29] MEDS: MORPHINE SULFATE 30 MG/30 ML PCA IV SCH (16:47)
[2017-10-29 17:56] VITALS: O2SAT 96
[2017-10-29 20:00] VITALS: BP 136/76; PULSE 87; RESP 20; TEMP 97.3; O2SAT 96
[2017-10-30] VITALS: BP 159/88; PULSE 84; RESP 20; TEMP 97; O2SAT 96
[2017-10-30] MEDS: PIPERACILLIN/TAZ 3.375 GM VIAL 3.375 GM in SODIUM CHLORIDE 0.9% INJ 50 ML IV SCH ×2 (01:59→06:37)
[2017-10-30] MEDS: PCA - TOTAL MG MORPHINE DELIVERED PER SHIFT SCH (06:37)
[2017-10-30 08:00] VITALS: BP 170/90; PULSE 82; RESP 16; TEMP 97.1; O2SAT 95
[2017-10-30] MEDS ORDERED: ACETAMINOPHEN/HYDROcodone 325 MG/5 MG TAB PO PRN (10:15)
[2017-10-30] MEDS: FLUCONAZOLE 200 MG PREMIX BAG 100 ML IV SCH (10:58)
[2017-10-30] MEDS: PANTOPRAZOLE SODIUM 40 MG VIAL IV PUSH SCH (10:58)
[2017-10-30] MEDS: ENOXAPARIN SODIUM 40 MG/0.4 ML SYRINGE SQ SCH (10:59)
[2017-10-30] MEDS: SODIUM CHLORIDE 0.9% FLUSH 10 ML FLUSH IV FLUSH SCH ×2 (10:59→20:10)
[2017-10-30] MEDS: ACETAMINOPHEN/HYDROcodone 325 MG/5 MG TAB PO PRN ×2 (10:59→21:17)
[2017-10-30 11:09] VITALS: O2SAT 95
[2017-10-30 12:00] VITALS: BP 160/89; PULSE 79; RESP 16; TEMP 97.1; O2SAT 92
--- NOTE | 2017-10-30 15:48 | HHI.PR ---
cc: Carlos Ballesteros MD Subjective Subjective Notes Resting in bed Eager to get oatmeal for breakfast Objective Vitals/I&O Vital Signs Date Time Temp Pulse Resp B/P (MAP) Pulse Ox O2 Delivery O2 Flow Rate FiO2 10/30/17 12:00 97.1 79 16 160/89 (112) 92 10/29/17 17:56 21 Labs Date/Time Source Procedure Growth Status 10/25/17 10:20 Fluid Other Gram Stain - Final Complete 10/25/17 10:20 Fluid Other Body Fluid Culture - Final Complete Cardiovascular: Regular Lungs: Clear Abdomen: Other (midline incision with SOO in place; abd soft ) Extremities: No edema A/P Assessment and Plan 82 year old female POD5 ex-lap; Jung Patch for perforated duodenal ulcer -Advance to regular soft diet -Added Augmentin -OOB and mobilize -Lovenox -DC IVF -DC STUDIO ASSISTANT -Likely home tomorrow Matilde Araujo Oct 30, 2017 15:48
[2017-10-30 16:00] VITALS: BP 168/96; PULSE 92; RESP 17; TEMP 96.9; O2SAT 96
[2017-10-30] MEDS ORDERED: ENALAPRILAT 1.25 MG/ML VIAL IV PUSH PRN (16:30)
[2017-10-30 20:00] VITALS: BP 158/87; PULSE 95; RESP 16; TEMP 98.5; O2SAT 95
[2017-10-30] MEDS ORDERED: AMOXICILLIN/CLAVULANATE K 875 MG TAB PO SCH (21:00)
[2017-10-30] MEDS ORDERED: PANTOPRAZOLE SOD 40 MG DELAYED RELEASE TAB PO SCH (21:00)
[2017-10-31] VITALS: BP 155/84; PULSE 87; RESP 18; TEMP 96.2; O2SAT 96
[2017-10-31 08:00] VITALS: BP 157/79; PULSE 82; RESP 18; TEMP 97.2; O2SAT 96
--- NOTE | 2017-10-31 08:37 | HHI.FF ---
Face to Face Verification Diagnosis: (1) Duodenal ulcer Physical Therapy Order: Evaluate and Treat, Improve ambulation, Strength and gait training Instructions: No restrictions Home Health Nursing Order: Wound care and dressing changes Instructions: Midline incision with janelle--- open to air Okay to shower; no baths I have seen patient Anabella Franco on 10/31/17. My clinical findings support the need for the requested home health care services because: Limited ability to care for self High risk of falls I certify that my clinical findings support that this patient is homebound because: Post-op weakness Matilde Araujo Oct 31, 2017 08:37
[2017-10-31] MEDS ORDERED: HYDR-3516 PO (08:41)
[2017-10-31] MEDS ORDERED: PANT40TA3 PO (08:41)
[2017-10-31] MEDS ORDERED: CLAR500T PO (08:41)
[2017-10-31] MEDS ORDERED: PANTOPRAZOLE SOD 40 MG DELAYED RELEASE TAB PO SCH (09:00)
[2017-10-31] MEDS ORDERED: AMOXICILLIN (TRIHYDRATE) 500 MG CAP PO SCH (09:00)
[2017-10-31] MEDS ORDERED: CLARITHROMYCIN 500 MG TAB PO SCH (09:00)
[2017-10-31] MEDS: SODIUM CHLORIDE 0.9% FLUSH 10 ML FLUSH IV FLUSH SCH (09:17)
[2017-10-31] MEDS: ENOXAPARIN SODIUM 40 MG/0.4 ML SYRINGE SQ SCH (09:17)
[2017-10-31 12:00] VITALS: BP 166/83; PULSE 94; RESP 18; TEMP 98.1; O2SAT 95
[2017-10-31 16:00] VITALS: BP 167/79; PULSE 97; RESP 18; TEMP 97.5; O2SAT 96
--- NOTE | 2017-10-31 16:42 | HHI.DS ---
Discharge Summary Admission Date Oct 25, 2017 at 06:06 Discharge Date: Oct 31, 2017 Admitting Diagnosis perforated viscous Brief History 82 year old female s/p ex-lap; Jung Patch for perforated duodenal ulcer PE at Discharge Alert and awake Cardio: RRR Resp: CTAB Abd: midline incision with janelle; SOO removed; GERSON removed Hospital Course This is a 82 year old female s/p ex-lap; Jung Patch for perforated duodenal ulcer. The patient's diet was advanced as tolerated. Her pain was controlled using oral pain medications. She was prescribed her antibiotics to take at home. She will follow up next in the office. Pt Condition on Discharge: Good Discharge Disposition: Disch w/ Home Health Serv Discharge Instructions DIET: Follow Instructions for: As Tolerated, No Restrictions, Soft Diet Activities you can perform: Regular-No Restrictions Other Activity Instructions: Okay to shower; pat incisions dry Avoid heavy pushing pulling or lifting Walking is good ! Matilde Araujo Oct 31, 2017 16:42
[2017-10-31] MEDS: ACETAMINOPHEN/HYDROcodone 325 MG/5 MG TAB PO PRN (16:57)
== END 2017-10-31 17:48 | disposition home health service (06) | DRG 328 ==
LOC: NEPC 03:28 → NEDA 06:06 → N07B 14:13
PROVIDERS: ADMIT Surgery; ATTEND Surgery
PROC: 0DB90ZX Excision of Duodenum, Open Approach, Diagnostic (ICD-10-PCS; 2017-10-25)
PROC: 0DU947Z Supplement Duodenum with Autologous Tissue Substitute, Percutaneous Endoscopic Approach (ICD-10-PCS; 2017-10-25)
PROC: 0DU907Z Supplement Duodenum with Autologous Tissue Substitute, Open Approach (ICD-10-PCS; principal; 2017-10-25 08:29)
PROC: 0DQ90ZZ Repair Duodenum, Open Approach (ICD-10-PCS; 2017-10-25 08:29)
DX: K26.5 Chronic or unspecified duodenal ulcer with perforation (principal); I10 Essential (primary) hypertension; Z53.31 Laparoscopic surgical procedure converted to open procedure; Z85.828 Personal history of other malignant neoplasm of skin
CPT/HCPCS: 74019; 74177; 80048; 80053; 81001; 83605; 83690; 84155; 84484; 85025; 85610; 87070; 87205; 88305; 88331; 93005; 94150; 96361; 96374; C9113; C9290; J0131; J1100; J1450; J1580; J1650; J2270; J2370; J2405; J2543; J2710; J3010; J3480; J7030; J7120; Q9963; Q9967